=== PATIENT | female | born 1965 | race Asian ===

== ENCOUNTER → 2017-01-19 | Outpatient (CLI) | payer MEDICARE, MEDICAID ==
[~2017-01-19] MED LIST: ALPR0.25 PO; AMLO10TA4 PO; ASPI-621 PO; ATOR40TA78 PO; CARB400T4 PO; CLOP75TA22 PO; CYCL-259 PO; FAMO-79 PO; HYDR-3240 PO; HYDR25TA6 PO; LISI-170 PO; LISI40TA PO; LOVA40TA2 PO; METO25TA35 PO; NITR0.4T SL; REGADENOSON 0.4 MG/5 ML SYRINGE ONE; TICA90TA PO; ZOLP-413 PO; ZOLP10TA PO
== END | disposition home or self-care (01) ==
LOC: CFH 07:07
PROVIDERS: ATTEND Internal Medicine Cardiovascular Disease
DX: I25.10 Atherosclerotic heart disease of native coronary artery without angina pectoris (principal); I65.22 Occlusion and stenosis of left carotid artery; I77.1 Stricture of artery
CPT/HCPCS: 78452; 93017; 93880; A9502; J2785